=== PATIENT | male | born 1950 | race Caucasian/White ===

== ENCOUNTER 2023-06-17 22:56 | Inpatient (IN) | payer OTHER, MEDICARE ==
[~2023-06-17] VITALS: Ht 167.6 cm; Wt 88.8 kg
[2023-06-18 01:18] LABS: BASOPHILS ABSOLUTE AUTO 0.06 K/mm3 (0.00-0.23); BASOPHILS PERCENT AUTO 0 % (0-2); EOSINOPHILS ABSOLUTE AUTO 0.01 K/mm3 (0.00-0.68); EOSINOPHILS PERCENT AUTO 0 % (0-6); IMMATURE GRAN ABSOLUTE AUTO 0.05 K/mm3 (0.00-0.10); IMMATURE GRAN PERCENT AUTO 0 % (0-1); LYMPHOCYTES ABSOLUTE AUTO 1.05 K/mm3 (0.84-5.20); LYMPHOCYTES PERCENT AUTO 7 % (21-46); MONOCYTES PERCENT AUTO 6 % (4-13); Mean Corpuscular HGB 30.2 pg (26.0-34.0); Mean Corpuscular HGB Conc 32.6 g/dL (31.5-36.5); Mean Corpuscular Volume 93 fL (80-100); Mean Platelet Volume 10.3 fL (9.1-12.4); NEUTROPHILS ABSOLUTE AUTO 12.31 K/mm3 (1.96-9.15); NEUTROPHILS PERCENT AUTO 86 % (41-73); Platelet Count 204 K/mm3 (150-400); RDW Coefficient Variation 14.1 % (11.7-14.2); RDW Standard Deviation 47.7 fL (35.1-46.3); Red Blood Cell Count 4.64 M/mm3 (4.30-5.90); White Blood Cell Count 14.38 K/mm3 (4.00-11.30)
[2023-06-18 01:35] LABS: Albumin, Blood 4.1 g/dL (3.4-5.0); Albumin/Globulin Ratio 1.3 (0.8-1.8); Bilirubin, Total 0.5 mg/dL (0.1-1.0); Bun/Creatinine Ratio 17.6 (12.0-20.0); Calcium, Blood 8.8 mg/dL (8.5-10.1); Creatinine, Blood 1.08 mg/dL (0.60-1.20); Globulin, Blood 3.2 g/dL (2.2-4.0); Potassium, Blood 4.8 mmol/L (3.5-5.5); Total Protein, Blood 7.3 g/dL (6.4-8.2)
[2023-06-18 04:12] VITALS: BP 154/91
[2023-06-18] MEDS ORDERED: ALLO100 PO (04:19)
[2023-06-18] MEDS ORDERED: BENA20 PO (04:20)
[2023-06-18] MEDS ORDERED: AMLO5 PO (04:21)
[2023-06-18] MEDS ORDERED: DABI150C PO (04:21)
[2023-06-18] MEDS ORDERED: Crestor20 MG PO (04:21)
[2023-06-18] MEDS ORDERED: PANT20 PO (04:22)
--- NOTE | 2023-06-18 04:50 | NUR ---
SHIFT SUMMARY. PT ARRIVED ON UNIT AT ABOUT ~0410. AOX4, PLEASANT, COOPERATIVE WITH CARE. INDEPENDENT WITHIN ROOM. ORDERS NOT INPUT FROM PHYSICIAN OF YET. NPO ORDER IN PLACE, DISCUSSION WITH REPORTING ED NURSE REGARDING THIS, NO REASON WE CAN SEE WHY PT WOULD BE NPO HE HAS BEEN EATING/DRINKING DOWNSTAIRS. LIKELY PROTOCOL ORDER. WILL MONITOR CHART TO SEE IF ORDER IS UPDATED. NO REPORTED PAIN SINCE ARRIVING ON FLOOR. [address] PT WAS SATTING IN LOW 90s IN ED. SATTING WELL NOW. CONTINENT. CALLS APPROPRIATELY. RAC IV SALINE LOCKED. NO ALLERGIES. VITALS WNL. BED LOCKED IN LOWEST POSITION. CALL LIGHT LEFT WITHIN REACH.
[2023-06-18 07:31] VITALS: BP 124/85
[2023-06-18 10:19] LABS: Hematocrit 39.4 % (37.0-53.0)
[2023-06-18 15:40] VITALS: BP 127/81
--- NOTE | 2023-06-18 17:33 | NUR ---
SHIFT SUMMARY Pt remains A&O x3 this shift. Left rib pain with deep breath improved with po Tylenol. Educated on IS, pt using appropriately. Ambulating independently in room. Call light in reach. No further needs id or verbalized at this time.
[2023-06-18 19:08] VITALS: BP 113/77
--- NOTE | 2023-06-19 03:25 | NUR ---
SHIFT SUMMARY. SHIFT HAS BEEN MOSTLY UNREMARKABLE. PT AOX4, PLEASANT, COOPERATIVE WITH CARE. SOME SPORADIC COMPLAINTS OF LEFT RIB PAIN THAT ARE ALLEVIATED WITH PRN PAIN MEDICATION. PT ABLE TO SLEEP PEACEFULLY THROUGH MOST OF SHIFT THUS FAR. CONTINUOUS PULSE OX IN PLACE, SOMETIMES NOTIFYING OF HR DIPPING INTO HIGH 40s. PT INFORMED HIS RESTING HR IS SOMEWHAT LOW DUE TO FREQUENT CARDIOVASCULAR EXERCISE. SATTING WELL ON 2 L O2 VIA NC. INDEPENDENT WITHIN ROOM. BED LOCKED IN LOWEST POSITION. CALL LIGHT LEFT WITHIN REACH.
[2023-06-19 04:39] VITALS: BP 140/83
[2023-06-19 07:26] VITALS: BP 131/81
[2023-06-19 15:49] VITALS: BP 121/84
--- NOTE | 2023-06-19 16:09 | NUR ---
CURRENTLY WEANING O2. WEANED FROM 3L TO 1L AT 1100. PT SHOWERED AND REPORTED REMOVING O2 WHILE SHOWERING. HE STATED THAT HE FELT FINE AND DID NOT HAVE SOB AT THAT TIME. R/A AT 1400. PT DROPPED IN SAT FROM 93% TO 84% WHILE TALKING ON THE PHONE. PLACED PT ON 1L, RECOVERED FAIRLY QUICKLY. EDUCATED PT ON CONTINUED USE OF INCENTIVE SPIROMETER AND THE BENEFITS OF USING. PT STATED THAT HE UNDERSTOOD AND WOULD USE DEVICE OFTEN. R/A AT 1622.
--- NOTE | 2023-06-19 18:26 | NUR ---
SHIFT SUMMARY PT IS ALERT AND ORIENTED X4. SAT 92% ON R/A, SITTING IN CHAIR EATING. PT HAS BEEN USING INCENTIVE SPIROMETER. NO ACUTE CHANGES. IDEPENDENT IN THE ROOM AND CALLS APPROPRIATELY. SEE PREVIOUS NOTE FOR DETAILS ON O2 WEANING.
[2023-06-19 20:40] VITALS: BP 121/88
--- NOTE | 2023-06-20 03:36 | NUR ---
SHIFT SUMMARY. SHIFT HAS BEEN UNREMARKABLE. PT AOX4, PLEASANT, COOPERATIVE WITH CARE. INDEPENDENT WITHIN ROOM. SATTING WELL ON SUPPLEMENTAL O2. USES INCENTIVE SPIROMETER FREQUENTLY. PAIN PRIMARILY PRESENTS WITH AMBULATION AND TRANSFER BUT IS MANAGED WELL VIA PRN PAIN MEDICATIONS. HAS SLEPT THROUGH MOST OF SHIFT THUS FAR. USES CALL LIGHT APPROPRIATELY. BED LOCKED IN LOWEST POSITION. CALL LIGHT LEFT WITHIN REACH.
[2023-06-20 05:20] VITALS: BP 150/78
[2023-06-20 07:58] VITALS: BP 127/103
[2023-06-20] MEDS ORDERED: OXAYDO5 M2 PO (13:41)
--- NOTE | 2023-06-20 14:39 | NUR ---
DISCHARGE PT DISCHARGED HOME WITH FRIENDS. DISCHARGE INSTRUCTIONS DISCUSSED WITH PT. NO QUESTIONS OR CONCERNS AT THIS TIME. INDEPENDENT, R/A. AXOX4
== END 2023-06-20 14:12 | disposition home or self-care (01) | DRG 200 ==
LOC: ER 22:56 → MEDS 22:57
PROVIDERS: Physician Assistant; Surgery; ADMIT Surgery
DX: S27.0XXA Traumatic pneumothorax, initial encounter (principal); S22.42XA Multiple fractures of ribs, left side, initial encounter for closed fracture; S27.329A Contusion of lung, unspecified, initial encounter; K21.9 Gastro-esophageal reflux disease without esophagitis; I10 Essential (primary) hypertension; E78.5 Hyperlipidemia, unspecified; M10.9 Gout, unspecified; V29.99XA Rider (driver) (passenger) of other motorcycle injured in unspecified traffic accident, initial encounter; Z86.718 Personal history of other venous thrombosis and embolism; Z79.899 Other long term (current) drug therapy
CPT/HCPCS: 36415; 70450; 71045; 71046; 71101; 71260; 72125; 80053; 85014; 85018; 85025; 94762; 96374; 97110; 97116; 97162; 97165; 97535; 99285-25; A9270; C9113; J1885; Q9967